=== PATIENT | female | born 1940 | race Caucasian/White ===

== ENCOUNTER 2017-08-02 22:08 | Emergency (ER) | payer MEDICARE ==
--- NOTE | 2017-08-02 22:34 | ER Report ---
History and Physical Time Seen By MD: 22:22 Hx. of Stated Complaint: was scratching right lower leg until started bleeding. HPI/ROS CHIEF COMPLAINT: Bleeding right franklin HISTORY OF PRESENT ILLNESS: 77-year-old female who was scratching varicose veins on her right anterior franklin develop bleeding that she could not stop. She presents here to the ER. She denies taking any blood thinners other than aspirin for pain relief occasionally. Allergies: Coded Allergies: No Known Drug Allergies (Unverified , 08/02/17) Reviewed Nurses Notes: Yes Old Medical Records Reviewed: Yes Hx Substance Use Disorder: No Hx Alcohol Use: No Constitutional Vital Sign - Last 24 Hours 08/02/17 08/02/17 22:13 23:03 Pulse 78 Resp 16 B/P (MAP) 191/88 209/104 (139) Pulse Ox 95 O2 Delivery Room Air Physical Exam General appearance: Alert no distress. Respiratory: Chest is non tender, lungs are clear to auscultation. Cardiac: Regular rate and rhythm Extremities: Examination of the right lower extremity reveals a bleeding varicose vein the anterior franklin in the lower aspect of the leg. Distal neurovascular functions intact. DIFFERENTIAL DIAGNOSIS: After history and physical exam differential diagnosis was considered for bleeding varicose vein, erosion, Medical Decision Making ED Course/Re-evaluation ED Course Patient was admitted to an examination room. H&P was done. The differential diagnoses was considered. Patient's bleeding site was injected with lidocaine with epinephrine. Electrocautery was used to cauterize the wound. There was still a slow amount of oozing and pressure dressing was applied which the patient is instructed to leave in place for 2 days. Decision to Disposition Date: Aug 02, 2017 Decision to Disposition Time: 23:02 Depart Departure Latest Vital Signs Vital Signs Date Time Temp Pulse Resp B/P (MAP) Pulse Ox O2 Delivery O2 Flow Rate FiO2 08/02/17 23:03 209/104 (139) 08/02/17 22:13 78 16 95 Room Air Impression: Primary Impression: Bleeding from varicose vein Condition: Improved Disposition: HOME OR SELF-CARE Patient Instructions: Acute Wound Care (ED) Additional Instructions: Leave pressure dressing in place for 2 days Follow-up with primary care if unimproved. Upon returning home NOLAN PAYNE DO Aug 02, 2017 22:33
[2017-08-02 23:03] VITALS: BP 209/104
== END 2017-08-02 23:18 | disposition home or self-care (01) ==
LOC: ER 23:12
DX: I83.891 Varicose veins of right lower extremity with other complications (principal)
CPT/HCPCS: 99282